=== PATIENT | male | born 1980 ===

== ENCOUNTER 2021-03-12 11:44 | Emergency (ER) | payer OTHER ==
[~2021-03-12] VITALS: Ht 180.3 cm; Wt 141.6 kg
[2021-03-12 13:24] LABS: BASOPHILS % (AUTO) 1 % (0-1); EOSINOPHILS % (AUTO) 0 % (1-7); LYMPHOCYTES % (AUTO) 31 % (22-44); MEAN CORPUSCULAR HEMOGLOBIN 30.7 pg (27.5-34.5); MEAN CORPUSCULAR HGB CONC 34.2 g/dL (33.2-36.2); MEAN PLATELET VOLUME 8.9 fL (7.4-10.4); MONOCYTES % (AUTO) 10 % (2-9); NEUTROPHILS % (AUTO) 58 % (42-75); PLATELET COUNT 169 x10^3/uL (130-400); RED BLOOD COUNT 5.69 x10^6/uL (4.38-5.82); RED CELL DISTRIBUTION WIDTH 12.8 % (9.4-14.8)
[2021-03-12 13:49] LABS: ALANINE AMINOTRANSFERASE 56 U/L (12-78); ALBUMIN 3.6 g/dL (3.4-5.0); ANION GAP 8 mmol/L (5-15); CALCIUM 8.6 mg/dL (8.5-10.1); CHLORIDE 102 mmol/L (98-107); CREATININE 1.02 mg/dL (0.7-1.3)
[2021-03-12 13:51] LABS: ALKALINE PHOSPHATASE 65 U/L (45-117); BILIRUBIN,TOTAL 0.4 mg/dL (0.2-1.0); TOTAL PROTEIN 8.5 g/dL (6.4-8.2)
--- NOTE | 2021-03-12 18:13 | NUR ---
NEWS ASSISTANT: PT TO ROOM FROM [facility]
[2021-03-12 18:54] VITALS: BP 148/96
[2021-03-12] MEDS ORDERED: DEXAMETHASONE 4 MG/ML, 1ML ONE (19:13)
[2021-03-12] MEDS ORDERED: DEXAMETHASONE 4 MG/ML, 1ML IM ONE (19:30)
== END 2021-03-12 19:57 | disposition home or self-care (01) ==
LOC: ED 19:53
DX: U07.1 COVID-19 (principal); J12.9 Viral pneumonia, unspecified; B34.9 Viral infection, unspecified; F17.200 Nicotine dependence, unspecified, uncomplicated
CPT/HCPCS: 36415; 71045; 80053; 83605; 84145; 85025; 87040; 96372; 99284; J1100; U0003; U0005; 99285